=== PATIENT | female | born 1985 | race Caucasian/White ===

== ENCOUNTER 2017-12-02 16:20 | Observation (INO) | payer BC ==
[~2017-12-02] VITALS: Ht 157.5 cm; Wt 90.7 kg
[2017-12-02] MEDS ORDERED: PREN-96 PO (17:14)
[2017-12-02] MEDS ORDERED: LACTATED RINGER'S 1,000 ML IV ONE (18:00)
[2017-12-02 18:03] LABS: Basophils # (auto) 0 uL; Basophils % (auto) 0.1 % (0.0-2.0); Eosinophils # (auto) 0.1 uL; Eosinophils % (auto) 0.7 % (0.0-7.0); Hematocrit 38.5 % (36.0-46.0); Hemoglobin 13.1 g/dL (12.2-16.2); Lymphocytes # (auto) 1.9 uL; Lymphocytes % (auto) 23.1 % (10.0-50.0); Mean Corpuscular Hemoglobin 33.9 pg (28.0-32.0); Mean Corpuscular Volume 99.7 fL (80.0-100.0); Monocytes # (auto) 0.6 uL; Monocytes % (auto) 7.1 % (0.0-12.0); Neutrophils # (auto) 5.7 uL; Nucleated Red Blood Cells % 0.1 %; Platelet Count (auto) 173 10^3/uL (140-450); Red Blood Cells 3.86 10^6/uL (4.0-5.20); Red Cell Distribution Width 12.8 % (11.8-14.3); Urine Bacteria NONE SEEN /hpf (None Seen); Urine Blood Negative /uL (Negative); Urine Specific Gravity 1.003 (1.001-1.035); Urine WBC 2 /hpf (0 - 5); White Blood Cell 8.2 10^3/uL (4.4-10.8)
[2017-12-02 18:10] LABS: INR 0.94 (0.9-1.15); Partial Thromboplastin Time 24.9 sec (22.64-33.71); Prothrombin Time 10.2 sec (9.37-12.3)
[2017-12-02 18:18] LABS: Albumin 2.6 g/dL (3.4-5.0); BUN/Creatinine Ratio 9.8; Bilirubin, Total 0.4 mg/dL (0.2-1.0); Calcium 8.1 mg/dL (8.5-10.1); Potassium 3.8 mmol/L (3.5-5.1); Total Protein 6.4 g/dL (6.4-8.2); Uric Acid 3.1 mg/dL (2.6-6.0)
== END 2017-12-02 19:55 | disposition home or self-care (01) | DRG 781 ==
LOC: LDRP 16:20
PROVIDERS: ADMIT Obstetrics & Gynecology; ATTEND Obstetrics & Gynecology
DX: O26.893 Other specified pregnancy related conditions, third trimester (principal); H53.8 Other visual disturbances; R00.9 Unspecified abnormalities of heart beat; R10.9 Unspecified abdominal pain; R23.1 Pallor; R42 Dizziness and giddiness; R51 Headache; Z3A.30 30 weeks gestation of pregnancy
CPT/HCPCS: 36415; 59025; 80053; 81001; 81002; 84550; 85025; 85610; 85730; 96360; G0378; 96365; 96366

== ENCOUNTER 2017-12-06 08:50 | Observation (INO) | payer BC ==
[~2017-12-06] VITALS: Ht 160 cm; Wt 90.7 kg
[~2017-12-06 08:50] MED LIST: PREN-96 PO
[2017-12-06] MEDS ORDERED: NIF10C GT (09:22)
[2017-12-06] MEDS ORDERED: BETAMETHASONE ACET (6MG/ML) 5ML VIAL IM SCH (10:00)
== END 2017-12-06 10:03 | disposition home or self-care (01) | DRG 778 ==
LOC: LDRP 08:50
PROVIDERS: ADMIT Obstetrics & Gynecology; ATTEND Obstetrics & Gynecology
DX: O60.03 Preterm labor without delivery, third trimester (principal); Z3A.30 30 weeks gestation of pregnancy
CPT/HCPCS: 59025; 81002; 96372; G0378; J0702

== ENCOUNTER 2017-12-07 09:19 | Observation (INO) | payer BC, MEDICAID ==
[~2017-12-07 09:19] MED LIST changes: +NIF10C GT
[2017-12-07] MEDS ORDERED: BETAMETHASONE ACET (6MG/ML) 5ML VIAL IM SCH (11:00)
== END 2017-12-07 10:10 | disposition home or self-care (01) | DRG 778 ==
LOC: LDRP 09:19
PROVIDERS: ADMIT Obstetrics & Gynecology; ATTEND Obstetrics & Gynecology
DX: O60.03 Preterm labor without delivery, third trimester (principal); Z3A.30 30 weeks gestation of pregnancy
CPT/HCPCS: 59025; 81002; 96372; G0378

== ENCOUNTER 2017-12-13 07:50 | Observation (INO) | payer BC, MEDICAID | END 2017-12-13 08:55 | disposition home or self-care (01) | DRG 778 | LOC: LDRP 07:50 | PROVIDERS: ADMIT Specialist; ATTEND Specialist | DX: O60.03 Preterm labor without delivery, third trimester (principal); O21.2 Late vomiting of pregnancy; Z3A.31 31 weeks gestation of pregnancy | CPT/HCPCS: 59025; 81002; G0378 ==

== ENCOUNTER 2017-12-20 07:45 | Observation (INO) | payer BC, MEDICAID | END 2017-12-20 08:30 | disposition home or self-care (01) | DRG 778 | LOC: LDRP 07:45 | PROVIDERS: ADMIT Obstetrics & Gynecology; ATTEND Obstetrics & Gynecology | DX: O60.03 Preterm labor without delivery, third trimester (principal); Z3A.32 32 weeks gestation of pregnancy | CPT/HCPCS: 59025; 81002; G0378 ==

== ENCOUNTER 2017-12-27 07:45 | Observation (INO) | payer BC, MEDICAID | END 2017-12-27 08:28 | disposition home or self-care (01) | DRG 778 | LOC: LDRP 07:45 | PROVIDERS: ADMIT Obstetrics & Gynecology; ATTEND Obstetrics & Gynecology | DX: O60.03 Preterm labor without delivery, third trimester (principal); Z3A.33 33 weeks gestation of pregnancy | CPT/HCPCS: 59025; 81002; G0378 ==

== ENCOUNTER 2018-01-03 11:40 | Observation (INO) | payer BC, MEDICAID | END 2018-01-03 12:30 | disposition home or self-care (01) | DRG 778 | LOC: LDRP 11:40 | PROVIDERS: ADMIT Obstetrics & Gynecology; ATTEND Obstetrics & Gynecology | DX: O60.03 Preterm labor without delivery, third trimester (principal); Z3A.34 34 weeks gestation of pregnancy | CPT/HCPCS: 59025; 81002; G0378 ==

== ENCOUNTER 2018-02-02 05:03 | Inpatient (IN) | payer BC, MEDICAID ==
[2018-02-02] VITALS (8 sets, daily range): BP systolic 95–146; BP diastolic 54–85
[~2018-02-02] VITALS: Ht 160 cm; Wt 94.3 kg
[2018-02-02] MEDS ORDERED: NIF10C PO (05:40)
[2018-02-02 06:21] LABS: INR 0.93 (0.9-1.15); Prothrombin Time 10.1 sec (9.37-12.3)
[2018-02-02 06:23] LABS: Albumin 2.5 g/dL (3.4-5.0); BUN/Creatinine Ratio 9.1; Calcium 8.8 mg/dL (8.5-10.1); Potassium 3.7 mmol/L (3.5-5.1)
[2018-02-02 06:24] LABS: Basophils # (auto) 0 uL; Basophils % (auto) 0.2 % (0.0-2.0); Eosinophils # (auto) 0.1 uL; Lymphocytes # (auto) 1.9 uL; Lymphocytes % (auto) 22.2 % (10.0-50.0)
[2018-02-02 06:27] LABS: Bilirubin, Total 0.6 mg/dL (0.2-1.0); Total Protein 5.9 g/dL (6.4-8.2)
[2018-02-02] MEDS: LACTATED RINGER'S 1,000 ML IV SCH ×3 (06:30→23:18)
[2018-02-02 06:31] LABS: Eosinophils % (auto) 0.6 % (0.0-7.0); Hematocrit 38.3 % (36.0-46.0); Hemoglobin 13.5 g/dL (12.2-16.2); Mean Corpuscular Hgb Conc. 35.1 g/dL (32.0-36.0); Mean Corpuscular Volume 99.7 fL (80.0-100.0); Monocytes # (auto) 0.7 uL; Monocytes % (auto) 7.6 % (0.0-12.0); Neutrophils # (auto) 6.1 uL; Neutrophils % (auto) 69.4 % (37.0-80.0); Nucleated Red Blood Cells % 0.2 %; Platelet Count (auto) 167 10^3/uL (140-450); Red Blood Cells 3.85 10^6/uL (4.0-5.20); White Blood Cell 8.8 10^3/uL (4.4-10.8)
[2018-02-02 07:21] LABS: Alcohol, Urine < 3.0 mg/dL (0-5); Amphetamine Screen, Urine NEGATIVE (NEGATIVE); Barbiturate Scree,Urine NEGATIVE (NEGATIVE); Benzodiazephine Screen, Urine NEGATIVE (NEGATIVE); Cannabinoid Screen, Urine NEGATIVE (NEGATIVE); Cocaine Screen, Urine NEGATIVE (NEGATIVE); Opiate Scree,Urine NEGATIVE (NEGATIVE); Phencyclidine Screen, Urine NEGATIVE (NEGATIVE)
[2018-02-02] MEDS ORDERED: TERBUTALINE SULFATE 1 MG/ML 1ML VIAL SC ONE ×2 (07:23→07:30)
[2018-02-02 07:25] LABS: Urine Bacteria NONE SEEN /hpf (None Seen); Urine Blood Negative /uL (Negative); Urine Specific Gravity 1.011 (1.001-1.035); Urine WBC 5 /hpf (0 - 5)
[2018-02-02] MEDS ORDERED: SUCCINYLCHOLINE CHLORIDE 20 MG/ML 10ML VIAL IV ONE (08:19)
[2018-02-02] MEDS ORDERED: TETRACAINE 1% INJ 2 ML VIAL IJ ONE (08:19)
[2018-02-02] MEDS ORDERED: fentaNYL CITRATE 100 MCG/2 ML VL ONE (08:35)
[2018-02-02] MEDS ORDERED: MORPHINE SULF(PF) 0.5MG/ML 10ML VIAL ONE (08:35)
[2018-02-02] MEDS ORDERED: MIDAZOLAM HCL 1MG/1ML-2 ML VIAL ONE (08:35)
[2018-02-02] MEDS ORDERED: OXYTOCIN 10 UNIT/ML 10ML VIAL ONE (08:36)
[2018-02-02] MEDS ORDERED: ePHEDrine SULFATE 50 MG/ML AMP ONE (08:36)
[2018-02-02] MEDS ORDERED: ceFAZolin 1GM VL ONE (08:36)
[2018-02-02] MEDS ORDERED: KETOROLAC TROMETH 30 MG/ML 1ML VIAL IV ONE (09:00)
[2018-02-02] MEDS ORDERED: METOCLOPRAMIDE HCL 5MG/ml INJ 2ml VIAL IV ONE (09:00)
[2018-02-02] MEDS ORDERED: MORPHINE SULFATE 8mg/ml INJ SDV IV PRN ×2 (09:00→10:00)
[2018-02-02] MEDS ORDERED: ONDANSETRON HCL 4 MG/2 ML VIAL IV PRN (10:00)
[2018-02-02] MEDS ORDERED: ceFAZolin 1GM/50ML 50 ML IV SCH (10:00)
[2018-02-02] MEDS: LACT. RINGERS/OXYTOCIN 20UNITS 1,000 ML IV SCH ×2 (10:55→23:17)
[2018-02-02] MEDS: diphenhdrAMINE HCL 50 MG/1 ML VL IV PRN ×2 (12:29→22:55)
[2018-02-02] MEDS: KETOROLAC TROMETH 30 MG/ML 1ML VIAL IV PRN (15:32)
[2018-02-02] MEDS: ceFAZolin 1GM/50ML 50 ML IV SCH (16:42)
[2018-02-02 20:14] LABS: Eosinophils # (auto) 0 uL; Hemoglobin 11.6 g/dL (12.2-16.2); Lymphocytes # (auto) 1.5 uL; Neutrophils # (auto) 7.3 uL; Nucleated Red Blood Cells % 0.1 %; White Blood Cell 9.4 10^3/uL (4.4-10.8)
[2018-02-02 20:16] LABS: Basophils # (auto) 0 uL; Basophils % (auto) 0.2 % (0.0-2.0); Eosinophils % (auto) 0.4 % (0.0-7.0); Hematocrit 33.1 % (36.0-46.0); Lymphocytes % (auto) 16.3 % (10.0-50.0); Mean Corpuscular Volume 99.9 fL (80.0-100.0); Monocytes # (auto) 0.6 uL; Neutrophils % (auto) 77.1 % (37.0-80.0); Red Blood Cells 3.32 10^6/uL (4.0-5.20)
[2018-02-02 20:48] LABS: Platelet Count (auto) 125 10^3/uL (140-450)
[2018-02-03] MEDS: ceFAZolin 1GM/50ML 50 ML IV SCH ×2 (00:57→08:45)
[2018-02-03 03:00] VITALS: BP 115/68
[2018-02-03] MEDS: KETOROLAC TROMETH 30 MG/ML 1ML VIAL IV PRN (04:15)
[2018-02-03] MEDS: LACTATED RINGER'S 1,000 ML IV SCH (05:12)
[2018-02-03 07:00] VITALS: BP 108/66
[2018-02-03 07:37] LABS: Basophils # (auto) 0 uL; Eosinophils # (auto) 0 uL; Eosinophils % (auto) 0.3 % (0.0-7.0); Monocytes # (auto) 0.5 uL; Neutrophils # (auto) 6.1 uL; Platelet Count (auto) 134 10^3/uL (140-450); Red Blood Cells 3.22 10^6/uL (4.0-5.20)
[2018-02-03 07:39] LABS: Basophils % (auto) 0.3 % (0.0-2.0); Hematocrit 32.2 % (36.0-46.0); Hemoglobin 11.3 g/dL (12.2-16.2); Lymphocytes # (auto) 1.1 uL; Lymphocytes % (auto) 14.5 % (10.0-50.0); Mean Corpuscular Hemoglobin 35.2 pg (28.0-32.0); Mean Corpuscular Hgb Conc. 35.2 g/dL (32.0-36.0); Mean Corpuscular Volume 100.1 fL (80.0-100.0); Monocytes % (auto) 6.3 % (0.0-12.0); Neutrophils % (auto) 78.6 % (37.0-80.0); Red Cell Distribution Width 13.3 % (11.8-14.3); White Blood Cell 7.8 10^3/uL (4.4-10.8)
[2018-02-03] MEDS ORDERED: BISACODYL 10 MG RECT SUPP PR PRN (09:00)
[2018-02-03] MEDS: IBUPROFEN 800 MG TAB PO PRN ×2 (09:50→17:50)
[2018-02-03] MEDS: DOCUSATE SOD 100 MG CAP PO SCH ×2 (09:50→22:00)
[2018-02-03] MEDS: FERROUS SULFATE 325 MG TAB PO SCH ×2 (09:50→22:00)
[2018-02-03] MEDS: DOCUSATE CALCIUM 240 MG CAP PO SCH (09:50)
[2018-02-03 11:00] VITALS: BP 112/70
[2018-02-03] MEDS: traMADol HCL 50 MG TAB PO PRN ×3 (11:00→22:37)
[2018-02-03] MEDS: SIMETHICONE 80 MG CHEWABLE TABLET PO SCH ×3 (12:38→22:00)
[2018-02-03 15:00] VITALS: BP 131/75
[2018-02-03 19:02] VITALS: BP 130/75
[2018-02-03 23:00] VITALS: BP 136/83
[2018-02-04] MEDS: IBUPROFEN 800 MG TAB PO PRN ×3 (01:46→19:30)
[2018-02-04 02:49] VITALS: BP 131/65
[2018-02-04] MEDS: traMADol HCL 50 MG TAB PO PRN ×3 (04:44→22:30)
[2018-02-04] MEDS: SIMETHICONE 80 MG CHEWABLE TABLET PO SCH ×4 (05:47→22:30)
[2018-02-04 07:15] VITALS: BP 114/72
[2018-02-04] MEDS: DOCUSATE SOD 100 MG CAP PO SCH ×2 (10:06→22:30)
[2018-02-04] MEDS: DOCUSATE CALCIUM 240 MG CAP PO SCH (10:06)
[2018-02-04] MEDS: FERROUS SULFATE 325 MG TAB PO SCH ×2 (10:06→22:30)
[2018-02-04 11:00] VITALS: BP 134/82
[2018-02-04 15:00] VITALS: BP 125/74
[2018-02-04 19:30] VITALS: BP 136/82
[2018-02-04 23:46] VITALS: BP 144/78
[2018-02-05 03:30] VITALS: BP 127/85
[2018-02-05] MEDS: IBUPROFEN 800 MG TAB PO PRN (03:59)
[2018-02-05] MEDS: SIMETHICONE 80 MG CHEWABLE TABLET PO SCH (05:31)
[2018-02-05 07:00] VITALS: BP 129/75
[2018-02-05] MEDS ORDERED: TETANUS-DIPTH-ACEL PERTUSSIS 0.5ML SYRG IM ONE (08:00)
== END 2018-02-05 09:20 | disposition home or self-care (01) | DRG 766 ==
LOC: LDRP 05:03
PROVIDERS: ADMIT Specialist; ATTEND Specialist
PROC: 10D00Z1 Extraction of Products of Conception, Low, Open Approach (ICD-10-PCS; 2018-02-02)
PROC: 0UL70CZ Occlusion of Bilateral Fallopian Tubes with Extraluminal Device, Open Approach (ICD-10-PCS; principal; 2018-02-02 09:00)
DX: O34.219 Maternal care for unspecified type scar from previous cesarean delivery (principal); Z30.2 Encounter for sterilization; Z37.0 Single live birth; Z98.51 Tubal ligation status
CPT/HCPCS: 36415; 51702; 59025; 80053; 80307; 81001; 81002; 85025; 85610; 85730; 86850; 86900; 86901; 90715; 94760; 96361; 96365; 96366; 96372; 96374; 96375; J0330; J0690; J1885; J2250; J2270; J2590